=== PATIENT | female | born 2000 | race Asian ===

== ENCOUNTER 2023-12-15 22:04 | Emergency (ER) | payer SELFPAY ==
[~2023-12-15] VITALS: Ht 152.4 cm; Wt 56.7 kg
[2023-12-15 22:30] VITALS: TEMP 98
[2023-12-15] MEDS ORDERED: diphenhydrAMINE HCL 50 MG/ML VIAL IM ONE (23:30)
[2023-12-15] MEDS ORDERED: diphenhydrAMINE HCL 50 MG/ML VIAL ONE (23:34)
[2023-12-16 00:51] VITALS: BP 111/72; O2SAT 99
== END 2023-12-16 00:52 | disposition home or self-care (01) ==
LOC: ER 22:07
DX: Z04.3 Encounter for examination and observation following other accident (principal); R51.9 Headache, unspecified; V89.2XXA Person injured in unspecified motor-vehicle accident, traffic, initial encounter; Y93.89 Activity, other specified; Y92.89 Other specified places as the place of occurrence of the external cause; Y99.8 Other external cause status
CPT/HCPCS: 99285; 70450; 96372; J1200